=== PATIENT | female | born 1965 | race African-American/Black ===

== ENCOUNTER 2017-01-01 03:39 | Emergency (ER) | payer BC ==
[~2017-01-01 03:39] MED LIST: COZ50 PO; DORYX100 MG PO; EZFE 200200 MG PO; FESO4 PO; FLONASE NAS; FLORASTOR250 MG PO; GLUCPH PO; HYZAAR 100/25 T1 TAB PO; HYZAAR 50/12.51 TAB PO; LEVAQUIN750 MG PO; MVI PO; NORV10 PO; NORV5 PO; P10 PO; PROAIR HFA INH; PROMETH/COD1 ML PO; QVAR40 MC1 INH; ZOFRAN ODT4 MG PO
[2017-01-01 03:51] LABS: BASOPHILS 0.1 %; BASOPHILS ABSOLUTE 0.01 10/3/uL (0.0-0.16); EOSINOPHILS 0.2 %; EOSINOPHILS ABSOLUTE 0.02 10/3/uL (0.0-0.53); ER CBC TAT 0 Hrs 10 Mins; HEMATOCRIT 32.1 % (36.0-48.0); HEMOGLOBIN 9.5 g/dL (12.0-16.0); IMMATURE GRANULOCYTES 0.3 %; IMMATURE GRANULOCYTES ABSOLUTE 0.03 10/3/uL (0.0-0.11); LYMPHOCYTES 19.3 %; LYMPHOCYTES ABSOLUTE 1.74 10/3/uL (0.67-4.30); MEAN CORPUS HGB CONC 29.6 g/dL (32.0-36.0); MEAN CORPUSCULAR HEMOGLOB 21.5 pg (26.0-34.0); MEAN PLATELET VOLUME 10.1 fL (9.2-13.0); MONOCYTES 6.8 %; MONOCYTES ABSOLUTE 0.61 10/3/uL (0.21-1.20); NEUTROPHILS 73.3 %; NEUTROPHILS ABSOLUTE 6.59 10/3/uL (2.02-8.40); PLATELET COUNT 360 10/3/uL (150-400); RBC DISTRIBUTION WIDTH 16.6 % (12.0-16.0); RED CELL COUNT 4.41 10/6/uL (4.0-5.6)
[2017-01-01 03:54] LABS: MANUAL DIFF NO %; MEAN CORPUSCULAR VOLUME 72.8 fL (80-100)
[2017-01-01 04:05] LABS: A/G RATIO 0.6 (0.7-1.9); ALKALINE PHOSPHATASE 104 U/L (45-117); BUN (BLOOD UREA NITROGEN) 12 MG/DL (6-23); CALCIUM, SERUM 8.6 MG/DL (8.5-10.4); CHLORIDE, SERUM 105 MMOL/L (96-112); CO2 (CARBON DIOXIDE) 21 MMOL/L (24-34); CREATININE 0.87 MG/DL (0.55-1.02); GFR AFRICAN AMERICAN 89 ML/MIN (>=60); GFR NON AFRICAN AMERICAN 77 ML/MIN (>=60); GLUCOSE, SERUM 247 MG/DL (60-99); POTASSIUM, SERUM 3.3 MMOL/L (3.5-5.3); SGOT(AST) 17 U/L (5-40); SGPT(ALT) 19 U/L (5-65); SODIUM, SERUM 137 MMOL/L (135-148); TOTAL BILIRUBIN 0.3 MG/DL (0-1.2); TOTAL PROTEIN 8.2 G/DL (6.0-8.5)
[2017-01-01 04:06] LABS: GLOBULIN 5.2 G/DL (2.5-4.1)
[2017-01-01 04:23] LABS: PLATELET ESTIMATE ADQ (ADEQUATE)
== END 2017-01-01 04:47 | disposition home or self-care (01) ==
LOC: ER 03:39
PROVIDERS: Emergency Medicine
DX: R19.7 Diarrhea, unspecified (principal); R11.2 Nausea with vomiting, unspecified; J45.909 Unspecified asthma, uncomplicated; I10 Essential (primary) hypertension; E11.9 Type 2 diabetes mellitus without complications
CPT/HCPCS: 80053; 83690; 85025; 96374; 99284; J2405